=== PATIENT | female | born 1990 | race Asian ===

== ENCOUNTER 2017-06-21 14:08 | Inpatient (IN) | payer SELFPAY ==
[~2017-06-21] VITALS: Ht 162.6 cm; Wt 77.1 kg
[2017-06-25] MEDS ORDERED: LACTATED RINGERS 1,000 ML IV SCH (00:47)
[2017-06-25] MEDS ORDERED: NALBUPHINE 10 MG/ML AMP IVP PRN (00:50)
[2017-06-25] MEDS ORDERED: METHYLERGONOVINE 0.2 MG/ML AMP IM SCH (00:50)
[2017-06-25] MEDS ORDERED: PROMETHAZINE 25 MG/ML VIAL IVP PRN (00:50)
[2017-06-25] MEDS ORDERED: MISOPROSTOL 25 MCG TAB VG PRN (00:50)
[2017-06-25] MEDS ORDERED: CARBOPROST 250 MCG/ML AMP IM PRN (00:50)
[2017-06-25] MEDS ORDERED: OXYTOCIN 20 UNITS/LR PREMIX 1,000 ML IV PRN (00:50)
[2017-06-25 01:26] LABS: APPEARANCE,URINE CLEAR (CLEAR); BILIRUBIN,URINE NEGATIVE (NEGATIVE); BLOOD, URINE NEGATIVE (NEGATIVE); COLOR,URINE YELLOW (YELLOW); LEUKOCYTE ESTERASE ,URINE 1+ (NEGATIVE); NITRITE, URINE NEGATIVE (NEGATIVE); PH,URINE 5.5 (5.0-9.0); UGLUCOSE NEGATIVE (NEGATIVE)
[2017-06-25 01:35] LABS: ANION GAP 15.1 (8-16); CARBON DIOXIDE 21.9 mmol/L (21-32); CREATININE 0.6 mg/dL (0.6-1.3)
[2017-06-25 01:40] LABS: BASOPHILS # (AUTO) 0.1 K/uL (0.00-0.22); BASOPHILS % (AUTO) 1.3 % (0.0-2.0); EOSINOPHILS # (AUTO) 0.2 K/uL (0-0.4); EOSINOPHILS % (AUTO) 1.9 % (0.0-4.0); HEMATOCRIT 38.5 % (36-48); HEMOGLOBIN 12.4 g/dL (12.0-16.0); LYMPHOCYTES # (AUTO) 2.1 K/uL (2.5-16.5); LYMPHOCYTES % (AUTO) 20.7 % (20.5-51.1); MEAN CORPUSCULAR HEMOGLOBIN 30 pg (27-31); MEAN CORPUSCULAR HGB CONC 32 g/dL (33-37); MEAN CORPUSCULAR VOLUME 93 fL (80-94); MONOCYTES # (AUTO) 0.8 K/uL (0.8-1.0); MONOCYTES % (AUTO) 7.7 % (1.7-9.3); NEUTROPHILS # (AUTO) 6.8 K/uL (1.8-7.7); NEUTROPHILS % (AUTO) 68.4 % (42.2-75.2); PLATELET COUNT (AUTO) 215 K/uL (140-450); RED BLOOD CELL COUNT(AUTO) 4.15 MIL/uL (4.20-5.40); RED CELL DISTRIBUTION WIDTH 12.2 % (11.6-13.7)
[2017-06-25 01:43] LABS: ALBUMIN 2.9 g/dL (3.4-5.0); TOTAL BILIRUBIN 0.4 mg/dL (0.0-1.0)
[2017-06-25 02:02] LABS: RBC,URINE 0-5 (RARE) /HPF (0-5)
[2017-06-25] MEDS ORDERED: MISOPROSTOL 25 MCG TAB ONE (02:36)
[2017-06-25] MEDS ORDERED: OXYTOCIN 20 UNITS/LR PREMIX 1,000 ML IV ONE (07:48)
[2017-06-25 08:14] LABS: RAPID PLASMA REAGIN NON-REACTIVE (Non Reactiv)
--- NOTE | 2017-06-25 09:05 | NUR ---
PATIENT HAS BEEN SCREENED AND CATEGORIZED LOW NUTRITION RISK. PATIENT WILL BE SEEN WITHIN 7 DAYS OF ADMISSION. 07/01/[address]
[2017-06-25] MEDS ORDERED: BUPIVACAINE 0.125%/NS PREMIX 250 ML ONE (10:16)
[2017-06-25] MEDS ORDERED: PREN-256 PO (14:23)
[2017-06-25] MEDS ORDERED: OXYTOCIN 10 UNITS/ML VIAL IM SCH (15:20)
[2017-06-25] MEDS ORDERED: NALBUPHINE HYDROCHLORIDE 10 MG/ML VIAL ONE (15:43)
[2017-06-25] MEDS ORDERED: OXYTOCIN 10 UNITS/ML VIAL ONE (15:53)
[2017-06-25] MEDS ORDERED: NALOXONE 0.4 MG/ML VIAL ONE (15:56)
[2017-06-25] MEDS ORDERED: TEMAZEPAM 15 MG CAP PO PRN (21:00)
[2017-06-25] MEDS ORDERED: oxyCODONE/APAP 5/325 MG 1 TAB TAB PO PRN (21:00)
[2017-06-25] MEDS ORDERED: WITCH HAZEL 40 PAD PACKAGE TP PRN (21:00)
[2017-06-25] MEDS ORDERED: BENZOCAINE/MENTHOL 20%-0.5% 60 GM CAN TP PRN (21:00)
[2017-06-25] MEDS ORDERED: DOCUSATE SOD/SENNA 50/8.6 MG 1 TAB PO SCH (21:00)
[2017-06-25] MEDS ORDERED: HYDROcodone/APAP 5/325 MG 1 TAB TAB PO PRN (21:00)
[2017-06-25] MEDS: IBUPROFEN 800 MG TAB PO PRN (23:10)
[2017-06-26 07:14] LABS: HEMATOCRIT 30.2 % (36-48)
[2017-06-26] MEDS: IBUPROFEN 800 MG TAB PO PRN ×2 (08:23→22:44)
== END 2017-06-27 12:05 | disposition home or self-care (01) | DRG 775 ==
LOC: MLD 06-25 00:40 → MFCC 06-25 20:45
PROVIDERS: ADMIT Obstetrics & Gynecology; ATTEND Obstetrics & Gynecology
PROC: 10E0XZZ Delivery of Products of Conception, External Approach (ICD-10-PCS; principal; 2017-06-25)
PROC: 0KQM0ZZ Repair Perineum Muscle, Open Approach (ICD-10-PCS; 2017-06-25)
PROC: 10907ZC Drainage of Amniotic Fluid, Therapeutic from Products of Conception, Via Natural or Artificial Opening (ICD-10-PCS; 2017-06-25)
PROC: 00HU33Z Insertion of Infusion Device into Spinal Canal, Percutaneous Approach (ICD-10-PCS; 2017-06-25)
PROC: 3E0R3CZ (ICD-10-PCS; 2017-06-25)
DX: O48.0 Post-term pregnancy (principal); O69.1XX0 Labor and delivery complicated by cord around neck, with compression, not applicable or unspecified; Z37.0 Single live birth; Z3A.40 40 weeks gestation of pregnancy; O70.1 Second degree perineal laceration during delivery
CPT/HCPCS: 36415; 51702; 59200; 80053; 81001; 85018; 85025; 86592; 86886; 86900; 86901; 87086; J2300; J2310; J2590; J3490; J7120